=== PATIENT | female | born 1935 | race Caucasian/White ===

== ENCOUNTER → 2023-08-31 06:41 | Outpatient (REF) | payer MEDICARE, SELFPAY ==
[2023-08-31 08:26] LABS: ALT (SGPT) 83 U/L (0-35); AST (SGOT) 50 U/L (14-36); Albumin 4.3 g/dl (3.5-5.0); Alkaline Phosphatase 141 U/L (38-126); Direct Bilirubin 0.6 mg/dl (0.0-0.4); Total Bilirubin 1.1 mg/dl (0.2-1.3); Total Protein 7.4 g/dl (6.3-8.2)
== END ==
LOC: REG 06:41
PROVIDERS: ATTENDING PHYSICIAN Family Medicine
DX: R79.89 Other specified abnormal findings of blood chemistry (principal)
CPT/HCPCS: 36415; 80076

== ENCOUNTER → 2023-09-03 07:45 | Outpatient (REF) | payer MEDICARE, SELFPAY | LOC: RAD 07:45 | PROVIDERS: ATTENDING PHYSICIAN Family Medicine | DX: R82.998 Other abnormal findings in urine (principal); R17 Unspecified jaundice; R82.2 Biliuria | CPT/HCPCS: 76700 ==

== ENCOUNTER → 2023-09-12 07:23 | Outpatient (REF) | payer MEDICARE, SELFPAY ==
[2023-09-12 08:46] LABS: ALT (SGPT) 31 U/L (0-35); AST (SGOT) 35 U/L (14-36); Albumin 4.4 g/dl (3.5-5.0); Alkaline Phosphatase 77 U/L (38-126); Direct Bilirubin 0.5 mg/dl (0.0-0.4); Total Bilirubin 0.9 mg/dl (0.2-1.3); Total Protein 7.4 g/dl (6.3-8.2)
== END ==
LOC: REG 07:23
PROVIDERS: ATTENDING PHYSICIAN Family Medicine
DX: R79.89 Other specified abnormal findings of blood chemistry (principal); R74.8 Abnormal levels of other serum enzymes; E11.65 Type 2 diabetes mellitus with hyperglycemia
CPT/HCPCS: 36415; 80076

== ENCOUNTER → 2023-11-02 09:08 | Outpatient (REF) | payer MEDICARE, SELFPAY ==
[2023-11-02 10:57] LABS: ALT (SGPT) 42 U/L (0-35); AST (SGOT) 37 U/L (14-36); Albumin 4.5 g/dl (3.5-5.0); Alkaline Phosphatase 83 U/L (38-126); Blood Urea Nitrogen 21 mg/dl (7-17); Calcium 9.8 mg/dl (8.4-10.2); Carbon Dioxide 26 mmol/L (22-30); Chloride 100 mmol/L (98-107); Glucose 139 mg/dl (70-99); Potassium 4.6 mmol/L (3.5-5.1); Sodium 138 mmol/L (135-145); Total Bilirubin 0.7 mg/dl (0.2-1.3); Total Protein 7.3 g/dl (6.3-8.2); eGFR > 60.00
[2023-11-02 12:55] LABS: Hematocrit 41.7 % (37.0-47.0); Hemoglobin 14.1 g/dL (12.0-16.0); Mean Corp Hgb Conc. 33.8 g/dL (33.0-37.0); Mean Corpuscular Hgb 31.3 pg (27.0-31.0); Mean Corpuscular Volume 92.7 fL (81.0-99.0); Mean Platelet Volume 11.8 fL (7.4-10.4); Platelet Count 259 10^3/uL (130-400); Red Cell Dist. Width 14.6 % (11.5-14.5); White Blood Cell Count 7.1 10^3/uL (4.8-10.8)
== END ==
LOC: SDSPAT 09:08
PROVIDERS: ATTENDING PHYSICIAN Surgery; FAMILY PHYSICIAN Family Medicine; OTHER PHYSICIAN Internal Medicine Cardiovascular Disease
DX: Z01.818 Encounter for other preprocedural examination (principal)
CPT/HCPCS: 36415; 80053; 85027

== ENCOUNTER 2023-11-13 13:10 | Inpatient (IN) | payer MEDICARE, SELFPAY ==
[2023-11-02 13:50] VITALS: BMI 36.6
[2023-11-13] VITALS (11 sets, daily range): BP systolic 92–172; BP diastolic 54–93; BMI 36.6
[2023-11-13] MEDS: TYLENOL 1000 MG PO (11:04)
[2023-11-13] MEDS: NORMOSOL-R 1000 IV ×2 (11:04→13:53)
[2023-11-13 11:09] LABS: Glucose - Point of Care 142 mg/dl (70-99)
--- NOTE | 2023-11-13 12:58 | W.IMMPOSTOP ---
Addendum entered and electronically signed by Romel Majano MD 11/13/23 13:10:
[facility]#[id number]
Original Note:
Surgical Immed Post Op Note
-
Primary Surgeon: Melecio
Assisting Surgeon: KHADAR Carolina
Pre-op Diagnosis: Chronic cholecystitis and choledocholithiasis
Post-op Diagnosis: Chronic cholecystitis
Procedure Performed: Laparoscopic cholecystectomy with IOC
Anesthesia Type: General
Specimen / Cultures:
1. Gallbladder
Estimated Blood Loss: 7 cc
Complications: None
Operative Findings:
1. Chronically inflamed GB, thickened posterior wall
2. Critical view of safety
3. IOC with dilated BCD, no obvious filling defects, turbulent flow at cystic insertion
[2023-11-13 13:20] LABS: Glucose - Point of Care 155 mg/dl (70-99)
--- NOTE | 2023-11-13 14:12 | PTCARENOTE ---
Pt arrived to 2 [address] from PACU s/p lap jeff. Pt AAOx3, IVF infusing, and has 5 lap incisions, all VP [employer] [employer]E[facility] and C/D/I. Pt states mild pain at this time, no nausea. Oriented to call varela and room, bed in lowest position and locked, call varela within
reach.
[2023-11-13] MEDS: TYLENOL 650 MG PO ×2 (15:00→19:39)
[2023-11-13 15:53] LABS: Glucose - Point of Care 150 mg/dl (70-99)
[2023-11-13] MEDS: LIPITOR 20 MG PO (17:14)
[2023-11-13] MEDS: LOVENOX 40 MG SC (17:14)
[2023-11-13] MEDS: NOVOLOG FLEXPEN-MODERATE RESISTANCE 1 UNITS SC (17:15)
[2023-11-13] MEDS: TOPROL XL 100 MG PO (19:34)
[2023-11-13] MEDS: ORETIC 25 MG PO (19:34)
[2023-11-13] MEDS: ALDACTONE 25 MG PO (19:35)
[2023-11-13 21:16] LABS: Glucose - Point of Care 208 mg/dl (70-99)
[2023-11-13] MEDS: HUMULIN N KWIKPEN 60 UNITS SC (21:38)
[2023-11-14] MEDS: TYLENOL 650 MG PO ×5 (01:02→20:46)
[2023-11-14 03:15] VITALS: BP 132/58
[2023-11-14] MEDS: TYLENOL PO (05:07)
[2023-11-14 07:06] VITALS: BP 126/55
[2023-11-14 07:51] LABS: Glucose - Point of Care 119 mg/dl (70-99)
[2023-11-14] MEDS: COZAAR 100 MG PO (07:56)
[2023-11-14] MEDS: NOVOLOG FLEXPEN-MODERATE RESISTANCE SC ×3 (07:56→17:26)
[2023-11-14] MEDS: ORETIC 25 MG PO ×2 (07:57→20:54)
[2023-11-14] MEDS: ALDACTONE 25 MG PO ×2 (07:57→20:54)
[2023-11-14] MEDS: TOPROL XL 100 MG PO ×2 (07:57→20:53)
--- NOTE | 2023-11-14 08:05 | W.PN.GS2 ---
Addendum entered and electronically signed by Romel Majano MD 11/14/23 11:15:
LFTs elevated. GI consulted for possible choledocholithiasis.
Original Note:
Today's Communication / Plan
-
-- LFD
-- CBC and CMP pending, f/u AM labs
-- DC pending labs and diet tolerance
Assessment / Plan
-
Patient is a 88 yo F POD#1 s/p laparoscopic cholecystectomy with IOC
Recovering well. No postoperative concerns. Plan to repeat CMP given questionable subtle filling defect on IOC, possible retained stone versus turbulent flow and air bubble
-- LFD
-- Pain control: Tylenol, IV Dilaudid PRN
-- HLIV
-- Home medications
-- DVT: Lovenox
-- CBC and CMP pending, f/u AM labs
-- DC pending labs and diet tolerance
Subjective Data
-
Date of Service: November 14, 2023
No major complaints. Reports abdominal soreness with movement. No nausea or vomiting. No fevers or chills. Voiding. OOB to chair.
Objective Data
-
Intake and Output
11/13/23 11/14/23 11/15/23
06:59 06:59 06:59
Intake Total 1660 / 1660
Balance 1660 / 1660
Intake:
Oral fluids 1560 / 1560
IV fluids (Total) 100 / 100
normosol 100 / 100
Other:
Number of approximated MODERATE 2
amounts of urine
Number of approximated LARGE 3
amounts of urine
How many times incontinent 1
Vital Signs
Temp Pulse Resp BP Pulse Ox
97.6 F 74 20 132/58 95
11/14/23 03:15 11/14/23 03:15 11/14/23 03:15 11/14/23 03:15 11/14/23 03:15
Physical Exam
-
Gen: NAD
Abd: soft, mild tenderness, ND, obese, non-peritoneal, incisions c/d/i - no erythema, ecchymosis or drainage
[2023-11-14 08:18] LABS: Hematocrit 32.2 % (37.0-47.0); Hemoglobin 11.7 g/dL (12.0-16.0); Mean Corp Hgb Conc. 36.3 g/dL (33.0-37.0); Mean Corpuscular Hgb 33.2 pg (27.0-31.0); Mean Corpuscular Volume 91.5 fL (81.0-99.0); Mean Platelet Volume 11.7 fL (7.4-10.4); Platelet Count 235 10^3/uL (130-400); Red Blood Cell Count 3.52 10^6/uL (4.20-5.40); Red Cell Dist. Width 14.6 % (11.5-14.5); White Blood Cell Count 9.5 10^3/uL (4.8-10.8)
[2023-11-14 08:45] LABS: ALT (SGPT) 566 U/L (0-35); AST (SGOT) 640 U/L (14-36); Albumin 3.8 g/dl (3.5-5.0); Alkaline Phosphatase 109 U/L (38-126); Blood Urea Nitrogen 20 mg/dl (7-17); Carbon Dioxide 26 mmol/L (22-30); Chloride 99 mmol/L (98-107); Estimated Creatinine Clearance 68 ml/min; Glucose 117 mg/dl (70-99); Sodium 132 mmol/L (135-145); Total Bilirubin 1.3 mg/dl (0.2-1.3); Total Protein 6.4 g/dl (6.3-8.2); eGFR > 60.00
[2023-11-14 09:20] LABS: Glycohemoglobin (HgbA1c) 6.3 % (4.0-5.6)
[2023-11-14 11:06] VITALS: BP 116/54
--- NOTE | 2023-11-14 12:00 | CON.GI ---
Consultation
-
Date/Time Consultation Requested: 11/14/23 1112
Date/Time Consultation Performed: 11/14/23 1200
Requesting Provider: Dr Majano
Performing Provider: Dr. Elaine / Skylar Luna PA-C
Reason for Consultation: elevated LFTs
Medical History
Chief Complaint / HPI
History of Present Illness:
This is an 88-year-old female with a past medical history of atrial fibrillation (on Eliquis, currently held), morbid obesity, IDDM who underwent laparoscopic cholecystectomy yesterday 11/13/[address] Majano, with requested GI consultation now
requested for post-operative elevated liver function tests. LFTs as follows: total bilirubin 1.3, AST 640, ALT 566, alk phos 109. She denies any abdominal, nausea, vomiting, fever or chills. On intraoperative cholangiogram a subtle filling defect
was noted. Per the op report, 'it was difficult to tell if this was a stone or turbulent flow. Further runs and flushing was performed and this abnormality dissipated.' Patient's Eliquis has not been re-started.
Past Medical History
Past Medical History: IDDM and Other (atrial fibrillation (on Eliquis, currently held))
Past Surgical History: Cholecystectomy
Social History
Tobacco: Non-Smoker
Alcohol: None
Drug: None
Family History
Family History: Reviewed & Not Pertinent
Allergies / Home Medications
Allergy/AdvReac Type Severity Reaction Status Date / Time
atorvastatin [From Lipitor] Allergy Rash, Verified 11/10/23 12:51
Itching
nitrofurantoin Allergy Unknown Verified 11/10/23 12:51
[From Macrobid]
Sulfa (Sulfonamide Allergy Rash, Verified 11/10/23 12:51
Antibiotics) Itching
�Medication �Instructions �Recorded
acetaminophen 650 mg 650 mg PO Q12H 11/10/23
tablet,extended release
apixaban 5 mg tablet (Eliquis) 5 mg PO BID 11/10/23
ascorbic acid (vitamin C) 500 mg 500 mg PO BID 11/10/23
tablet (Vitamin C)
atorvastatin 20 mg tablet 20 mg PO QPM 11/10/23
coQ10 (ubiquinol) 100 mg capsule 100 mg PO DAILY 11/10/23
cyanocobalamin (vitamin B-12) 25 25 mcg PO DAILY 11/10/23
mcg tablet
docusate sodium 100 mg capsule 100 - 200 mg PO PRN PRN 11/10/23
(Colace) constipation
insulin NPH isoph U-100 human 100 60 unit SC HS 11/10/23
unit/mL (3 mL) subcutaneous pen
losartan 100 mg tablet 100 mg PO DAILY 11/10/23
metformin 1,000 mg tablet 1,000 mg PO BID 11/10/23
metoprolol succinate 100 mg 100 mg PO BID 11/10/23
tablet,extended release 24 hr
(Toprol XL)
milk thistle 250 mg PO HS 11/10/23
milk thistle 500 mg PO DAILY 11/10/23
nmvxgapp-vpqx-twam 8 mg-folic 400 1 tab PO DAILY 11/10/23
mcg-K 50 mcg-lutein 300 mcg tablet
(Centrum Silver Women)
peg 400-propylene glycol (PF) 0.4 1 drp BOTH EYES BID 11/10/23
%-0.3 % eye drops in a dropperette
(Systane (PF))
spironolactone 25 1 tab PO BID 11/10/23
mg-hydrochlorothiazide 25 mg tablet
turmeric 400 mg capsule 1,000 mg PO BID 11/10/23
vitamins A,C,K-jsdn-kttnbj 2,148 1 tab PO BID 11/10/23
mcg-113 mg-45 mg-17.4 mg tablet
(PreserVision AREDS)
Review of Systems
-
History Source: Patient
All other systems: A 12 pt ROS was Negative except as stated above in HPI
Vital Signs
Temp Pulse Resp BP Pulse Ox
98.1 F 59 16 116/54 96
11/14/23 11:06 11/14/23 11:06 11/14/23 11:06 11/14/23 11:06 11/14/23 11:06
Physical Exam
Exam
General: Well Developed, Well Nourished and No Apparent Distress
Respiratory: Clear
Cardiac: Regular Rhythm
GI: Soft, Non Tender, Non Distended, Normal Bowel Sounds and Other (laparascopic incisions healing well without signs of infection)
Skin: Warm and Dry
Neuro: AO x 3
Psych: Calm
Results
WBC Cancelled 11/14/23 08:13
Hgb Cancelled 11/14/23 08:13
Hct Cancelled 11/14/23 08:13
MCV Cancelled 11/14/23 08:13
Plt Count Cancelled 11/14/23 08:13
Sodium 132 mmol/L (135-145) L 11/14/23 08:13
Potassium 4.0 mmol/L (3.5-5.1) 11/14/23 08:13
Chloride 99 mmol/L (98-107) 11/14/23 08:13
Carbon Dioxide 26 mmol/L (22-30) 11/14/23 08:13
BUN 20 mg/dl (7-17) H 11/14/23 08:13
Creatinine 0.6 mg/dL (0.6-1.0) 11/14/23 08:13
Calcium 9.0 mg/dl (8.4-10.2) 11/14/23 08:13
Total Bilirubin 1.3 mg/dl (0.2-1.3) 11/14/23 08:13
AST 640 U/L (14-36) H* 11/14/23 08:13
ALT 566 U/L (0-35) H* 11/14/23 08:13
Alkaline Phosphatase 109 U/L (38-126) 11/14/23 08:13
Diagnostic Image Results:
Prior GI Procedures:
EGD: never
Colonoscopy: never
Assessment / Plan
-
This is an 88-year-old female with a past medical history of atrial fibrillation (on Eliquis, currently held), morbid obesity, IDDM who underwent laparoscopic cholecystectomy yesterday 11/13/[address] Majano, with requested GI consultation now
requested for post-operative elevated liver function tests. LFTs as follows: total bilirubin 1.3, AST 640, ALT 566, alk phos 109. She denies any abdominal, nausea, vomiting, fever or chills. On intraoperative cholangiogram a subtle filling defect
was noted. Per the op report, 'it was difficult to tell if this was a stone or turbulent flow. Further runs and flushing was performed and this abnormality dissipated.' Patient's Eliquis has not been re-started.
IMPRESSION / PLAN:
Elevated LFTs s/p cholecystectomy -- questionable choledocholithiasis
- patient developed elevated LFTs on Post-op Day 1 after laparoscopic cholecystectomy
- will order US Doppler
- consider MRI/MRCP for further clarification, pending US results
We will follow.
-
-
Thank you for consultation and allowing me to participate in the patient's care. Please call the siphoner GI physician during the after hours with any questions or concerns.
[2023-11-14 12:58] LABS: Glucose - Point of Care 134 mg/dl (70-99)
[2023-11-14 15:14] VITALS: BP 102/50
[2023-11-14] MEDS: LIPITOR 20 MG PO (17:24)
[2023-11-14] MEDS: LOVENOX 40 MG SC (17:24)
[2023-11-14 17:27] LABS: Glucose - Point of Care 130 mg/dl (70-99)
[2023-11-14 18:07] LABS: ALT (SGPT) 570 U/L (0-35); AST (SGOT) 499 U/L (14-36); Albumin 3.9 g/dl (3.5-5.0); Alkaline Phosphatase 122 U/L (38-126); Blood Urea Nitrogen 21 mg/dl (7-17); Calcium 9.6 mg/dl (8.4-10.2); Carbon Dioxide 32 mmol/L (22-30); Chloride 97 mmol/L (98-107); Estimated Creatinine Clearance 58 ml/min; Glucose 122 mg/dl (70-99); Sodium 135 mmol/L (135-145); Total Bilirubin 1.3 mg/dl (0.2-1.3); Total Protein 6.5 g/dl (6.3-8.2); eGFR > 60.00
[2023-11-14 22:24] LABS: Glucose - Point of Care 197 mg/dl (70-99)
[2023-11-14] MEDS: HUMULIN N KWIKPEN 60 UNITS SC (23:04)
[2023-11-14 23:13] VITALS: BP 141/60
[2023-11-15] MEDS: TYLENOL 650 MG PO ×5 (00:01→20:45)
[2023-11-15] MEDS: TYLENOL PO (05:03)
[2023-11-15 06:33] LABS: Glucose - Point of Care 124 mg/dl (70-99)
--- NOTE | 2023-11-15 07:44 | W.PN.GS2 ---
Today's Communication / Plan
-
-- GI consult, plan for US today and repeat CMP
Assessment / Plan
-
Patient is a 88 yo F POD#2 s/p laparoscopic cholecystectomy with IOC
Labs with elevated LFTs, GI consult placed, possible choledocholithiasis given history and IOC versus acute insult to an underlying underlying liver dysfunction
AVSS, tolerating diet
Recovering well overall
-- GI consult, plan for US today and repeat CMP
-- LFD
-- Pain control: Tylenol, IV Dilaudid PRN
-- Home medications
-- DVT: Lovenox
Subjective Data
-
Date of Service: November 15, 2023
No complaints. Pain today improved. No nausea or vomiting. No fevers or chills.
Objective Data
-
Intake and Output
11/14/23 11/15/23 11/16/23
06:59 06:59 06:59
Intake Total 1660 / 1660 2400 / 2400
Balance 1660 / 1660 2400 / 2400
Intake:
Oral fluids 1560 / 1560 2400 / 2400
IV fluids (Total) 100 / 100
normosol 100 / 100
Other:
Number of approximated MODERATE 2 2
amounts of urine
Number of approximated LARGE 3 1
amounts of urine
How many times incontinent 1
Vital Signs
Temp Pulse Resp BP Pulse Ox
97.8 F 69 20 141/60 94
11/14/23 23:13 11/14/23 23:13 11/14/23 23:13 11/14/23 23:13 11/14/23 23:13
Calcium 9.6 mg/dl (8.4-10.2) 11/14/23 17:42
Total Bilirubin 1.3 mg/dl (0.2-1.3) 11/14/23 17:42
AST 499 U/L (14-36) H 11/14/23 17:42
ALT 570 U/L (0-35) H* 11/14/23 17:42
Alkaline Phosphatase 122 U/L (38-126) 11/14/23 17:42
Total Protein 6.5 g/dl (6.3-8.2) 11/14/23 17:42
Albumin 3.9 g/dl (3.5-5.0) 11/14/23 17:42
Physical Exam
-
Gen: NAD
Abd: soft, minimal tenderness, ND, non-peritoneal, incisions c/d/i - no erythema, ecchymosis or drainage
[2023-11-15 07:47] VITALS: BP 128/68
[2023-11-15 07:56] LABS: Hematocrit 36.3 % (37.0-47.0); Hemoglobin 12.5 g/dL (12.0-16.0); Mean Corp Hgb Conc. 34.4 g/dL (33.0-37.0); Mean Corpuscular Hgb 30.7 pg (27.0-31.0); Mean Corpuscular Volume 89.2 fL (81.0-99.0); Mean Platelet Volume 10.2 fL (7.4-10.4); Platelet Count 243 10^3/uL (130-400); Red Blood Cell Count 4.07 10^6/uL (4.20-5.40); Red Cell Dist. Width 14.6 % (11.5-14.5); White Blood Cell Count 7.6 10^3/uL (4.8-10.8)
[2023-11-15] MEDS: ALDACTONE 25 MG PO ×2 (08:17→20:44)
[2023-11-15] MEDS: TOPROL XL 100 MG PO ×2 (08:17→20:45)
[2023-11-15] MEDS: COZAAR 100 MG PO (08:17)
[2023-11-15] MEDS: ORETIC 25 MG PO ×2 (08:17→20:46)
[2023-11-15 09:16] LABS: ALT (SGPT) 510 U/L (0-35); AST (SGOT) 341 U/L (14-36); Alkaline Phosphatase 152 U/L (38-126); Blood Urea Nitrogen 24 mg/dl (7-17); Calcium 9.6 mg/dl (8.4-10.2); Carbon Dioxide 25 mmol/L (22-30); Chloride 103 mmol/L (98-107); Estimated Creatinine Clearance 51 ml/min; Glucose 101 mg/dl (70-99); Potassium 4.1 mmol/L (3.5-5.1); Sodium 137 mmol/L (135-145); Total Bilirubin 0.9 mg/dl (0.2-1.3); Total Protein 6.8 g/dl (6.3-8.2); eGFR > 60.00
--- NOTE | 2023-11-15 09:47 | CM ---
Patient with Dx Elevated LFTs s/p laparoscopic cholecystectomy. Plan ultrasound today.
Met with patient who resides alone in a first floor apartment with 1 [address].
Patient has been independent in ADLs and ambulation, using her quad cane when going out.
She manages her own diabetes and uses her glucometer.
Patient is able to drive and shops for herself.
Her son Vicente is POA and assists her as needed.
DME: quad cane, glucometer
No prior VN or SNF.
PCP - Oleg Rodriguez
Pharmacy - [facility]
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
Plan follow up with patient re; VN.
Plan home.
--- NOTE | 2023-11-15 10:32 | W.PN.GI.CBS2 ---
Today's Communication / Plan
-
f/u US
Assessment / Plan
-
Giovanna is an 88 y.o. female admitted to on 11/12 for elective cholecystectomy, now POD#1 with post-operative course c/b elevated liver enzymes.
Elevated Liver Enzymes-- hepatocellular injury
-AST 640, ALT 566, Alk phos 109, Tbili 1.3; pre surgical AST/ALT with minimal elevation, AST 37, ALT 42 on 11/01
-repeat LFTs today with improvement: AST 341, ALT 510, Alk phos 152, Tbili 0.9
-IOC performed, with questionable subtle filling defect vs. turbulant flow vs. air bubble
-no fluctuations in hemodynamics (karla- or post-operatively)
-check US w/ dopplers, if unrevealing, will plan to obtain MRI/MRCP
Subjective
Subjective
Date of Service: November 15, 2023
Patient reports feeling well this morning, mild discomfort at surgical site but otherwise doing well and tolerating diet. Ultrasound pending this morning.
Objective
Data Reviewed
Laboratory Data:
Laboratory Results
11/15/23 07:36
11/15/23 07:36
Laboratory Results
Total Bilirubin 0.9 mg/dl (0.2-1.3) 11/15/23 07:36
AST 341 U/L (14-36) H 11/15/23 07:36
ALT 510 U/L (0-35) H* 11/15/23 07:36
Alkaline Phosphatase 152 U/L (38-126) H 11/15/23 07:36
Vital Signs and I&O:
Vital Signs
Temp Pulse Resp BP Pulse Ox
97.6 F 70 16 128/68 96
11/15/23 07:47 11/15/23 07:47 11/15/23 07:47 11/15/23 07:47 11/15/23 07:47
I&O
11/14/23 11/15/23 11/16/23
06:59 06:59 06:59
Intake Total 1660 / 1660 2400 / 2400
Balance 1660 / 1660 2400 / 2400
Physical Exam
Physical Exam
GENERAL: In no acute distress, appears comfortable
ABDOMEN: +BS; soft, nondistended; surgical site appears clean/dry/intact with minimal tenderness
[2023-11-15 11:55] LABS: Glucose - Point of Care 95 mg/dl (70-99)
[2023-11-15 15:43] VITALS: BP 127/64
[2023-11-15 16:40] LABS: Glucose - Point of Care 255 mg/dl (70-99)
[2023-11-15] MEDS: LOVENOX 40 MG SC (17:10)
[2023-11-15] MEDS: LIPITOR 20 MG PO (17:10)
[2023-11-15] MEDS: NOVOLOG FLEXPEN-MODERATE RESISTANCE 5 UNITS SC (17:10)
[2023-11-15] MEDS: COLACE 100 MG PO (20:56)
[2023-11-15 21:38] LABS: Glucose - Point of Care 179 mg/dl (70-99)
[2023-11-15] MEDS: HUMULIN N KWIKPEN 60 UNITS SC (22:12)
[2023-11-15 23:53] VITALS: BP 139/69
[2023-11-16] MEDS: TYLENOL 650 MG PO ×7 (00:03→23:53)
[2023-11-16] MEDS: NOVOLOG FLEXPEN-MODERATE RESISTANCE SC ×3 (06:00→19:37)
[2023-11-16 06:02] LABS: Glucose - Point of Care 68 mg/dl (70-99)
[2023-11-16 06:21] LABS: Glucose - Point of Care 119 mg/dl (70-99)
[2023-11-16 06:23] LABS: PT 14.1 Sec (11.4-14.6)
--- NOTE | 2023-11-16 06:26 | PTCARENOTE ---
Pt NPO and allowed to have clear liquids 4 hours prior to ERCP (tentatively scheduled for 1300). Blood sugar at 0600 was 68. Per hypoglycemia protocol, gave pt 4 ounces of orange juice and rechecked the blood sugar 15 minutes later at 0615. Blood
sugar was 119. Per protocol repeat blood sugar Q2 x2 and again at 0300 tonight, 11/16.
[2023-11-16 07:50] VITALS: BP 138/59
[2023-11-16 08:14] LABS: Glucose - Point of Care 124 mg/dl (70-99)
--- NOTE | 2023-11-16 08:28 | W.PN.GS2 ---
Today's Communication / Plan
-
GI to see regarding possible EUS
Assessment / Plan
-
Patient is a 88 yo F POD#3 s/p laparoscopic cholecystectomy with IOC
Labs with elevated LFTs, GI consult placed, possible choledocholithiasis given history and ?+IOC versus acute insult to an underlying underlying liver dysfunction
AVSS, tolerating diet
Recovering well overall
-- Bilirubin remains normal, and LFTs trending down.
-- Unfortunately the patient is not amenable to MRI so current plan is for an endoscopic ultrasound today with Dr. Ramos.
-- Dispo pending GI recs and management. Anticipate discharge today versus tomorrow.
-- Will plan to resume Eliquis 2 days after her last inpatient procedure.
Time Spent
Total Time Spent with Patient (in minutes): 20
Subjective Data
-
Date of Service: November 16, 2023
Interval Events:
No acute events overnight. Blood sugar low this morning. Slept well. Pain Controlled. Denies Nausea/Vomiting, +bowel function. Tolerating diet.
Objective Data
-
Intake and Output
11/15/23 11/16/23 11/17/23
06:59 06:59 06:59
Intake Total 2400 / 2400 2960 / 2960
Balance 2400 / 2400 2960 / 2960
Intake:
Oral fluids 2400 / 2400 2960 / 2960
IV fluids (Total) 0 / 0
IV piggybacks 0 / 0
Other:
Number of approximated MODERATE 2 3
amounts of urine
Number of approximated LARGE 1
amounts of urine
Vital Signs
Temp Pulse Resp BP Pulse Ox
97.6 F 66 18 138/59 95
11/16/23 07:50 11/16/23 07:50 11/16/23 07:50 11/16/23 07:50 11/16/23 07:50
Lab Results
11/15/23 07:36
11/15/23 07:36
Calcium 9.6 mg/dl (8.4-10.2) 11/15/23 07:36
Total Bilirubin 0.9 mg/dl (0.2-1.3) 11/15/23 07:36
AST 341 U/L (14-36) H 11/15/23 07:36
ALT 510 U/L (0-35) H* 11/15/23 07:36
Alkaline Phosphatase 152 U/L (38-126) H 11/15/23 07:36
Total Protein 6.8 g/dl (6.3-8.2) 11/15/23 07:36
Albumin 4.0 g/dl (3.5-5.0) 11/15/23 07:36
Physical Exam
-
GENERAL/NEURO: Awake, Alert, no distress
CHEST: Unlabored breathing on RA
ABDOMEN: Soft, Non-Tender, Non-Distended, incisions clean dry and intact.
[2023-11-16] MEDS: ORETIC 25 MG PO ×2 (08:50→20:00)
[2023-11-16] MEDS: TOPROL XL 100 MG PO ×2 (08:51→20:01)
[2023-11-16] MEDS: COZAAR 100 MG PO (08:51)
[2023-11-16] MEDS: ALDACTONE 25 MG PO ×2 (08:51→19:59)
[2023-11-16 11:36] LABS: Glucose - Point of Care 125 mg/dl (70-99)
--- NOTE | 2023-11-16 14:29 | CM ---
Reviewed the chart notes and spoke with the patient and her grandson at the bedside. Reviewed VN services. Patient declines at this time. Patient's grandson is a OT with [employer]. CM continues to be available to patient/family and is monitoring
medical plan for needs at discharge.
Plan: Discharge to home when medically stable.
--- NOTE | 2023-11-16 15:19 | W.PN.GI.CBS2 ---
Today's Communication / Plan
-
EUS +/- ERCP tomorrow
Assessment / Plan
-
Giovanna is an 88 y.o. female admitted to on 11/12 for elective cholecystectomy, now POD#1 with post-operative course c/b elevated liver enzymes.
Elevated Liver Enzymes-- hepatocellular injury
-LFTs following [facility]-AST 640, ALT 566, Alk phos 109, Tbili 1.3; pre surgical AST/ALT with minimal elevation, AST 37, ALT 42 on 11/01
-no labs obtained today
-IOC performed, with questionable subtle filling defect vs. turbulent flow vs. air bubble
-no fluctuations in hemodynamics (karla- or post-operatively)
-US w/ dopplers showed patent vasculature, no evidence of choledocholithiasis
-plan for EUS +/- ERCP with Dr. Ramos tomorrow
-NPO PMN, okay for clears up until 4 hours before procedure
Subjective
Subjective
Date of Service: November 16, 2023
No overnight events. Unfortunately, scheduled EUS postponed until tomorrow due to room availability. Discussed at length with patient and son at bedside. She prefers to stay and have the procedure done tomorrow.
Objective
Data Reviewed
Laboratory Data:
Laboratory Results
11/15/23 07:36
11/15/23 07:36
Laboratory Results
PT 14.1 Sec (11.4-14.6) 11/16/23 05:59
INR 1.10 11/16/23 05:59
Total Bilirubin 0.9 mg/dl (0.2-1.3) 11/15/23 07:36
AST 341 U/L (14-36) H 11/15/23 07:36
ALT 510 U/L (0-35) H* 11/15/23 07:36
Alkaline Phosphatase 152 U/L (38-126) H 11/15/23 07:36
Vital Signs and I&O:
Vital Signs
Temp Pulse Resp BP Pulse Ox
97.6 F 66 18 138/59 95
11/16/23 07:50 11/16/23 07:50 11/16/23 07:50 11/16/23 07:50 11/16/23 07:50
I&O
11/15/23 11/16/23 11/17/23
06:59 06:59 06:59
Intake Total 2400 / 2400 2960 / 2960
Balance 2400 / 2400 2960 / 2960
Physical Exam
Physical Exam
GENERAL: In no acute distress, appears comfortable
ABDOMEN: +BS; soft, nondistended; surgical site appears clean/dry/intact with minimal tenderness
[2023-11-16 15:40] VITALS: BP 147/71
[2023-11-16] MEDS: LOVENOX 40 MG SC (17:19)
[2023-11-16] MEDS: LIPITOR 20 MG PO (17:19)
[2023-11-16 17:27] LABS: Glucose - Point of Care 179 mg/dl (70-99)
[2023-11-16] MEDS: HUMULIN N KWIKPEN SC (22:00)
[2023-11-16 22:56] LABS: Glucose - Point of Care 212 mg/dl (70-99)
[2023-11-16] MEDS: HUMULIN N KWIKPEN 30 UNITS SC (22:59)
[2023-11-16] MEDS: NOVOLOG FLEXPEN-MODERATE RESISTANCE 3 UNITS SC (23:07)
[2023-11-16 23:23] VITALS: BP 134/54
[2023-11-16] MEDS: COLACE 100 MG PO (23:53)
[2023-11-17] VITALS (7 sets, daily range): BP systolic 14–151; BP diastolic 55–78
[2023-11-17 03:11] LABS: Glucose - Point of Care 175 mg/dl (70-99)
[2023-11-17] MEDS: TYLENOL 650 MG PO ×4 (04:31→20:21)
[2023-11-17 06:10] LABS: Glucose - Point of Care 131 mg/dl (70-99)
[2023-11-17] MEDS: NOVOLOG FLEXPEN-MODERATE RESISTANCE SC ×3 (06:11→17:12)
[2023-11-17 06:37] LABS: INR 1.04; PT 13.4 Sec (11.4-14.6)
[2023-11-17 06:57] LABS: ALT (SGPT) 341 U/L (0-35); AST (SGOT) 146 U/L (14-36); Albumin 3.8 g/dl (3.5-5.0); Alkaline Phosphatase 192 U/L (38-126); Blood Urea Nitrogen 21 mg/dl (7-17); Calcium 9.5 mg/dl (8.4-10.2); Carbon Dioxide 28 mmol/L (22-30); Chloride 102 mmol/L (98-107); Estimated Creatinine Clearance 58 ml/min; Glucose 118 mg/dl (70-99); Potassium 4.1 mmol/L (3.5-5.1); Sodium 139 mmol/L (135-145); Total Bilirubin 0.9 mg/dl (0.2-1.3); Total Protein 6.5 g/dl (6.3-8.2); eGFR > 60.00
--- NOTE | 2023-11-17 08:06 | W.PN.GS2 ---
Today's Communication / Plan
-
-- Plan for EUS +/- ERCP today
-- Dispo pending GI recs and management. Anticipate discharge today versus tomorrow.
Assessment / Plan
-
Patient is a 88 yo F POD#4 s/p laparoscopic cholecystectomy with IOC
Labs with elevated LFTs, GI consult placed, possible choledocholithiasis given history and ?+IOC versus acute insult to an underlying underlying liver dysfunction, trending down
AVSS, tolerating diet
Recovering well overall
-- Plan for EUS +/- ERCP today
-- Dispo pending GI recs and management. Anticipate discharge today versus tomorrow.
-- Will plan to resume Eliquis 2 days after her last inpatient procedure.
-- Diet advancement after procedure to CC
-- Pain control: Tylenol
-- Home medications
-- DVT: Lovenox
Subjective Data
-
Date of Service: November 17, 2023
No complaints. Denies worsening abdominal pain. No nausea or vomiting.
Objective Data
-
Intake and Output
11/16/23 11/17/23 11/18/23
06:59 06:59 06:59
Intake Total 2960 / 2960 2160 / 2160
Balance 2960 / 2960 2160 / 2160
Intake:
Oral fluids 2960 / 2960 2160 / 2160
IV fluids (Total) 0 / 0
IV piggybacks 0 / 0
Other:
Number of approximated MODERATE 3 4
amounts of urine
Number of approximated LARGE 5
amounts of urine
Vital Signs
Temp Pulse Resp BP Pulse Ox
98.0 F 61 14 151/64 97
11/17/23 07:42 11/17/23 07:42 11/17/23 07:42 11/17/23 07:42 11/17/23 07:42
Lab Results
11/15/23 07:36
11/17/23 05:58
Calcium 9.5 mg/dl (8.4-10.2) 11/17/23 05:58
Total Bilirubin 0.9 mg/dl (0.2-1.3) 11/17/23 05:58
AST 146 U/L (14-36) H 11/17/23 05:58
ALT 341 U/L (0-35) H 11/17/23 05:58
Alkaline Phosphatase 192 U/L (38-126) H 11/17/23 05:58
Total Protein 6.5 g/dl (6.3-8.2) 11/17/23 05:58
Albumin 3.8 g/dl (3.5-5.0) 11/17/23 05:58
Physical Exam
-
Gen: NAD
Abd: soft, NT/ND, non-peritoneal, incisions c/d/i - no erythema, ecchymosis or drainage
[2023-11-17] MEDS: ALDACTONE 25 MG PO ×2 (08:40→20:23)
[2023-11-17] MEDS: COZAAR 100 MG PO (08:40)
[2023-11-17] MEDS: TOPROL XL 100 MG PO ×2 (08:41→20:22)
[2023-11-17] MEDS: ORETIC 25 MG PO ×2 (08:42→20:23)
--- NOTE | 2023-11-17 11:31 | CM ---
Reviewed the chart notes and spoke with the patient at the bedside. LOC to inpatient. IMM signed and placed on the chart. The patient is scheduled for EUS +/- ERCP today. CM continues to be available to patient/family and is monitoring medical
plan for needs at discharge.
Plan: Discharge to home when medically stable. No anticipated needs identified at this time.
[2023-11-17 11:51] LABS: Glucose - Point of Care 141 mg/dl (70-99)
[2023-11-17] MEDS: TYLENOL PO (13:24)
[2023-11-17 16:19] LABS: Glucose - Point of Care 107 mg/dl (70-99)
--- NOTE | 2023-11-17 16:30 | W.PN.UPDATE ---
Update Note
Progress Note Update
s/p EUS w/ Dr. Ramos today:
Impression: - There was dilation in the common bile duct which
measured up to 7 mm.
- There was no sign of significant pathology in the
ampulla.
- There was no sign of significant pathology in the
pancreatic head.
- There was no evidence of significant pathology in
the left lobe of the liver.
- No specimens collected.
Recommendations:
-resume diet
-okay to resume Eliquis from a GI perspective
-GI will sign off, please call with questions
[2023-11-17] MEDS: LIPITOR 20 MG PO (17:05)
[2023-11-17] MEDS: ELIQUIS 5 MG PO (20:22)
[2023-11-17 22:02] LABS: Glucose - Point of Care 244 mg/dl (70-99)
[2023-11-17] MEDS: HUMULIN N KWIKPEN 60 UNITS SC (22:44)
[2023-11-18] MEDS: TYLENOL PO (01:00)
[2023-11-18] MEDS: TYLENOL 650 MG PO ×3 (03:13→12:22)
[2023-11-18 06:53] LABS: Hematocrit 36.9 % (37.0-47.0); Hemoglobin 12.4 g/dL (12.0-16.0); Mean Corp Hgb Conc. 33.6 g/dL (33.0-37.0); Mean Corpuscular Hgb 30.6 pg (27.0-31.0); Mean Corpuscular Volume 91.1 fL (81.0-99.0); Mean Platelet Volume 10.2 fL (7.4-10.4); Platelet Count 257 10^3/uL (130-400); Red Blood Cell Count 4.05 10^6/uL (4.20-5.40); Red Cell Dist. Width 14.9 % (11.5-14.5); White Blood Cell Count 6.6 10^3/uL (4.8-10.8)
--- NOTE | 2023-11-18 07:32 | W.PN.GS2 ---
Today's Communication / Plan
-
-- DC home
Assessment / Plan
-
Patient is a 88 yo F POD#5 s/p laparoscopic cholecystectomy with IOC
Labs with elevated LFTs, GI consult placed, possible choledocholithiasis given history and ?+IOC versus acute insult to an underlying underlying liver dysfunction, trending down, EUS negative
AVSS, tolerating diet
Recovering well overall
-- LFD
-- Pain control: Tylenol
-- Home medications
-- DVT: Lovenox -- > Eliquis
-- DC home
Subjective Data
-
Date of Service: November 18, 2023
No complaints. Denies pain. No nausea or emesis. No fevers.
Objective Data
-
Intake and Output
11/17/23 11/18/23 11/19/23
06:59 06:59 06:59
Intake Total 2160 / 2160 1919
Balance 2160 / 2160 1919
Intake:
Oral fluids 2160 / 2160 1919
Other:
Number of approximated MODERATE 4
amounts of urine
Number of approximated LARGE 5 1
amounts of urine
How many times incontinent 3
SMALL amount urine
Vital Signs
Temp Pulse Resp BP Pulse Ox
97.7 F 73 18 123/61 96
11/17/23 23:25 11/17/23 23:25 11/17/23 23:25 11/17/23 23:25 11/17/23 23:25
Lab Results
11/18/23 06:24
11/17/23 05:58
Calcium 9.5 mg/dl (8.4-10.2) 11/17/23 05:58
Total Bilirubin 0.9 mg/dl (0.2-1.3) 11/17/23 05:58
AST 146 U/L (14-36) H 11/17/23 05:58
ALT 341 U/L (0-35) H 11/17/23 05:58
Alkaline Phosphatase 192 U/L (38-126) H 11/17/23 05:58
Total Protein 6.5 g/dl (6.3-8.2) 11/17/23 05:58
Albumin 3.8 g/dl (3.5-5.0) 11/17/23 05:58
Physical Exam
-
Gen: NAD
Abd: soft, NT/ND, non-peritoneal, incisions c/d/i - no erythema, ecchymosis or drainage
[2023-11-18 07:36] LABS: Glucose - Point of Care 108 mg/dl (70-99)
[2023-11-18 07:45] VITALS: BP 121/59
[2023-11-18] MEDS: NOVOLOG FLEXPEN-MODERATE RESISTANCE SC (08:51)
[2023-11-18] MEDS: COZAAR 100 MG PO (09:08)
[2023-11-18] MEDS: ELIQUIS 5 MG PO (09:09)
[2023-11-18] MEDS: ALDACTONE 25 MG PO (09:09)
[2023-11-18] MEDS: ORETIC 25 MG PO (09:09)
[2023-11-18] MEDS: TOPROL XL 100 MG PO (09:10)
--- NOTE | 2023-11-18 10:39 | W.DS.TRANS ---
Addendum entered and electronically signed by WONG Villeda 11/19/23 16:11:
Dictated #[id number]
Original Note:
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
-
Discharge Instructions:
Sleep Apnea Risk Intermediate
Discharge Diagnosis/Procedures Laparoscopic cholecystectomy with intraoperative
cholangiogram and EGD with EUS
Diet Low Fat,Regular
Additional Diets If issues with bloating or diarrhea follow a low
-fat diet
Activity No strenuous activity
Additional Activity No heavy lifting (>20 lbs) or strenuous
activities for 2 weeks postoperatively
Driving Restrictions No driving if too sore or taking narcotics
Bathing Restrictions OK to Shower
Wound Care Keep incisions clean and dry. Glue will flake
off in 2 to 3 weeks. Stitches will dissolve.
Use ice to the abdomen to reduce any bruising or
swelling.
Instructions:
Stand-Alone Forms:
Changes to Home Medications: No
Discharge Medications:
DC Medications w/original date entered in [employer]
acetaminophen 650 mg tablet,extended release 650 mg PO Q12H Pain 11/10/23
apixaban 5 mg tablet (Eliquis) 5 mg PO BID Blood Clot Prevention/Tx 11/10/23
ascorbic acid (vitamin C) 500 mg tablet (Vitamin C) 500 mg PO BID Supplement 11/10/23
atorvastatin 20 mg tablet 20 mg PO QPM High Cholesterol 11/10/23
coQ10 (ubiquinol) 100 mg capsule 100 mg PO DAILY Supplement 11/10/23
cyanocobalamin (vitamin B-12) 25 mcg tablet 25 mcg PO DAILY Supplement 11/10/23
docusate sodium 100 mg capsule (Colace) 100 - 200 mg PO PRN PRN constipation 11/10/23
insulin NPH isoph U-100 human 100 unit/mL (3 mL) subcutaneous pen 60 unit SC HS Diabetes 11/10/23
losartan 100 mg tablet 100 mg PO DAILY Blood Pressure 11/10/23
metformin 1,000 mg tablet 1,000 mg PO BID Diabetes 11/10/23
metoprolol succinate 100 mg tablet,extended release 24 hr (Toprol XL) 100 mg PO BID Blood Pressure 11/10/23
milk thistle 250 mg PO HS Supplement 11/10/23
milk thistle 500 mg PO DAILY Supplement 11/10/23
ueounhoy-nkge-avum 8 mg-folic 400 mcg-K 50 mcg-lutein 300 mcg tablet (Centrum Silver Women) 1 tab PO DAILY Supplement 11/10/23
peg 400-propylene glycol (PF) 0.4 %-0.3 % eye drops in a dropperette (Systane (PF)) 1 drp BOTH EYES BID Eye Condition 11/10/23
spironolactone 25 mg-hydrochlorothiazide 25 mg tablet 1 tab PO BID Blood Pressure 11/10/23
turmeric 400 mg capsule 1,000 mg PO BID Supplement 11/10/23
vitamins A,C,W-sfgt-qlwtua 2,148 mcg-113 mg-45 mg-17.4 mg tablet (PreserVision AREDS) 1 tab PO BID Supplement 11/10/23
Home Medication Changes
Pending Results: No
--- NOTE | 2023-11-18 10:53 | CM ---
Reviewed the chart notes and spoke with the patient at the bedside. Patient is for discharge to home today. The patient's son will provide transportation. CM continues to be available to patient/family and is monitoring medical plan for needs at
discharge.
Plan: Discharge to home today with no needs.
[2023-11-18 12:03] LABS: Glucose - Point of Care 230 mg/dl (70-99)
[2023-11-18] MEDS: NOVOLOG FLEXPEN-MODERATE RESISTANCE 3 UNITS SC (12:20)
[2023-11-18 13:45] VITALS: BP 123/57
== END 2023-11-18 14:28 | disposition home or self-care (01) | DRG 419 ==
LOC: 2 SOUTH 13:10
PROVIDERS: ADMITTING PHYSICIAN Surgery; CONSULT PHYSICIAN Internal Medicine
PROC: 0FT44ZZ Resection of Gallbladder, Percutaneous Endoscopic Approach (ICD-10-PCS; 2023-11-13)
PROC: BF502Z0 Other Imaging of Bile Ducts using Fluorescing Agent, Intraoperative (ICD-10-PCS; 2023-11-13)
DX: K80.64 Calculus of gallbladder and bile duct with chronic cholecystitis without obstruction (principal); K76.0 Fatty (change of) liver, not elsewhere classified; E66.01 Morbid (severe) obesity due to excess calories; Z68.36 Body mass index [BMI] 36.0-36.9, adult; E11.9 Type 2 diabetes mellitus without complications; K83.8 Other specified diseases of biliary tract; K66.0 Peritoneal adhesions (postprocedural) (postinfection); I48.0 Paroxysmal atrial fibrillation; R74.8 Abnormal levels of other serum enzymes; R79.89 Other specified abnormal findings of blood chemistry; Z88.8 Allergy status to other drugs, medicaments and biological substances; Z79.01 Long term (current) use of anticoagulants; Z79.84 Long term (current) use of oral hypoglycemic drugs; Z79.899 Other long term (current) drug therapy; Z88.2 Allergy status to sulfonamides; Z88.3 Allergy status to other anti-infective agents
CPT/HCPCS: 88304; 74300; 76000; 76700; 80053; 82962; 83036; 85027; 85610; 93975

== ENCOUNTER → 2024-02-13 07:49 | Outpatient (REF) | payer MEDICARE, SELFPAY ==
[2024-02-13 09:25] LABS: % Basophils 1.3 % (0-2); % Eosinophils 4.3 % (0-6); % Immature Granulocytes 0.4 % (0-0.5); % Lymphocytes 17.5 % (20.5-51.1); % Monocytes 6.9 % (1.7-9.3); % Neutrophils 69.6 % (42.2-75.2); Absolute Basophils 0.1 10^3/uL (0-0.2); Absolute Eosinophils 0.3 10^3/uL (0-0.7); Absolute Lymphocytes 1.2 10^3/uL (1.2-3.4); Absolute Monocytes 0.5 10^3/uL (0.1-0.6); Absolute Neutrophils 4.9 10^3/uL (1.4-6.5); Hematocrit 38.1 % (37.0-47.0); Hemoglobin 12.6 g/dL (12.0-16.0); Mean Corp Hgb Conc. 33.1 g/dL (33.0-37.0); Mean Corpuscular Hgb 29.8 pg (27.0-31.0); Mean Corpuscular Volume 90.1 fL (81.0-99.0); Mean Platelet Volume 10.7 fL (7.4-10.4); Nucleated Red Blood Cells % 0 %; Platelet Count 253 10^3/uL (130-400); Red Blood Cell Count 4.23 10^6/uL (4.20-5.40); Red Cell Dist. Width 14.5 % (11.5-14.5)
[2024-02-13 09:36] LABS: Microalbumin, Random Urine 0.9 mg/dl (0.6-1.7); Microalbumin/creatinine Ratio 12.6 mg/g
[2024-02-13 10:03] LABS: ALT (SGPT) 28 U/L (0-35); AST (SGOT) 27 U/L (14-36); Albumin 4.3 g/dl (3.5-5.0); Alkaline Phosphatase 77 U/L (38-126); Amylase 68 U/L (30-110); Blood Urea Nitrogen 20 mg/dl (7-17); Calcium 9.6 mg/dl (8.4-10.2); Carbon Dioxide 26 mmol/L (22-30); Chloride 102 mmol/L (98-107); Glucose 138 mg/dl (70-99); HDL Cholesterol 24 mg/dl; LDL Cholesterol, Calculated 88 mg/dl; Lipase 183 U/L (23-300); Potassium 4.8 mmol/L (3.5-5.1); Sodium 141 mmol/L (135-145); Total Bilirubin 0.5 mg/dl (0.2-1.3); Total Cholesterol 155 mg/dl (50-199); Total Protein 7.1 g/dl (6.3-8.2); Triglyceride 218 mg/dl (10-149); Very Low Density Lipoprotein 43 mg/dl (0-30); eGFR > 60.00
[2024-02-13 10:22] LABS: Glycohemoglobin (HgbA1c) 6.4 % (4.0-5.6)
[2024-02-13 10:25] LABS: TSH Reflex To Free T4 3.29 uIU/ml (0.47-4.68)
[2024-02-15 19:47] LABS: Hepatitis C Antibody Negative (Negative)
== END ==
LOC: REG 07:49
PROVIDERS: ATTENDING PHYSICIAN Family Medicine
DX: E11.65 Type 2 diabetes mellitus with hyperglycemia (principal); Z79.4 Long term (current) use of insulin; E78.2 Mixed hyperlipidemia; E03.8 Other specified hypothyroidism; R79.9 Abnormal finding of blood chemistry, unspecified; Z01.89 Encounter for other specified special examinations; Z79.899 Other long term (current) drug therapy
CPT/HCPCS: 36415; 80053; 80061; 82043; 82150; 82570; 83036; 83690; 84443; 85025; 86803

== ENCOUNTER → 2024-04-27 09:12 | Outpatient (REF) | payer MEDICARE, SELFPAY | LOC: RCS 09:12 | PROVIDERS: ATTENDING PHYSICIAN Internal Medicine Cardiovascular Disease; FAMILY PHYSICIAN Family Medicine | DX: I48.21 Permanent atrial fibrillation (principal) | CPT/HCPCS: 93306 ==

== ENCOUNTER → 2024-07-26 07:08 | Outpatient (REF) | payer MEDICARE, SELFPAY ==
[2024-07-26 08:29] LABS: % Basophils 1.1 % (0-2); % Eosinophils 3.5 % (0-6); % Immature Granulocytes 0.7 % (0-0.5); % Lymphocytes 17.6 % (20.5-51.1); % Monocytes 7.2 % (1.7-9.3); % Neutrophils 69.9 % (42.2-75.2); Absolute Basophils 0.1 10^3/uL (0-0.2); Absolute Eosinophils 0.3 10^3/uL (0-0.7); Absolute Immature Granulocytes 0.1 10^3/uL (0-0.05); Absolute Lymphocytes 1.4 10^3/uL (1.2-3.4); Absolute Monocytes 0.6 10^3/uL (0.1-0.6); Absolute Neutrophils 5.7 10^3/uL (1.4-6.5); Hemoglobin 13.2 g/dL (12.0-16.0); Mean Corp Hgb Conc. 33.8 g/dL (33.0-37.0); Mean Corpuscular Hgb 31.1 pg (27.0-31.0); Mean Corpuscular Volume 91.8 fL (81.0-99.0); Mean Platelet Volume 10.6 fL (7.4-10.4); Nucleated Red Blood Cells % 0 %; Platelet Count 248 10^3/uL (130-400); Red Blood Cell Count 4.25 10^6/uL (4.20-5.40); Red Cell Dist. Width 14.8 % (11.5-14.5); White Blood Cell Count 8.1 10^3/uL (4.8-10.8)
[2024-07-26 09:00] LABS: ALT (SGPT) 25 U/L (0-35); AST (SGOT) 23 U/L (14-36); Albumin 4.1 g/dl (3.5-5.0); Alkaline Phosphatase 91 U/L (38-126); Amylase 66 U/L (30-110); Blood Urea Nitrogen 24 mg/dl (7-17); Calcium 9.5 mg/dl (8.4-10.2); Carbon Dioxide 24 mmol/L (22-30); Chloride 104 mmol/L (98-107); Glucose 132 mg/dl (70-99); HDL Cholesterol 23 mg/dl; LDL Cholesterol, Calculated 73 mg/dl; Lipase 211 U/L (23-300); Potassium 4.4 mmol/L (3.5-5.1); Sodium 140 mmol/L (135-145); Total Bilirubin 0.7 mg/dl (0.2-1.3); Total Cholesterol 133 mg/dl (50-199); Total Protein 7.1 g/dl (6.3-8.2); Triglyceride 187 mg/dl (10-149); Very Low Density Lipoprotein 37 mg/dl (0-30); eGFR > 60.00
[2024-07-26 09:16] LABS: TSH Reflex To Free T4 3.43 uIU/ml (0.47-4.68)
[2024-07-26 09:34] LABS: Hepatitis C Antibody Negative (Negative)
[2024-07-26 09:44] LABS: Microalbumin, Random Urine 0.9 mg/dl (0.6-1.7); Microalbumin/creatinine Ratio 9.3 mg/g
[2024-07-26 10:32] LABS: Glycohemoglobin (HgbA1c) 6.7 % (4.0-5.6)
== END ==
LOC: REG 07:08
PROVIDERS: ATTENDING PHYSICIAN Family Medicine
DX: E11.65 Type 2 diabetes mellitus with hyperglycemia (principal); Z79.4 Long term (current) use of insulin; I10 Essential (primary) hypertension; E78.2 Mixed hyperlipidemia; E03.8 Other specified hypothyroidism; Z01.89 Encounter for other specified special examinations; Z79.899 Other long term (current) drug therapy
CPT/HCPCS: 36415; 80053; 80061; 82043; 82150; 82570; 83036; 83690; 84443; 85025; 86803

== ENCOUNTER → 2024-12-28 06:54 | Outpatient (REF) | payer MEDICARE, SELFPAY ==
[2024-12-28 08:39] LABS: ALT (SGPT) 25 U/L (0-35); AST (SGOT) 24 U/L (14-36); Albumin 4.6 g/dl (3.5-5.0); Alkaline Phosphatase 71 U/L (38-126); Blood Urea Nitrogen 18 mg/dl (7-17); Calcium 9.4 mg/dl (8.4-10.2); Carbon Dioxide 26 mmol/L (22-30); Chloride 103 mmol/L (98-107); Glucose 110 mg/dl (70-99); Potassium 4.6 mmol/L (3.5-5.1); Sodium 139 mmol/L (135-145); Total Protein 7.5 g/dl (6.3-8.2); eGFR > 60.00
[2024-12-28 10:12] LABS: Glycohemoglobin (HgbA1c) 6.8 % (4.0-5.6)
== END ==
LOC: REG 06:54
PROVIDERS: ATTENDING PHYSICIAN Family Medicine
DX: R79.9 Abnormal finding of blood chemistry, unspecified (principal); Z79.899 Other long term (current) drug therapy; Z01.89 Encounter for other specified special examinations
CPT/HCPCS: 36415; 80053; 83036